=== PATIENT | female | born 1945 | race Caucasian/White ===

== ENCOUNTER 2017-03-13 08:55 | Outpatient (CLI) | payer MEDICARE, OTHER ==
--- NOTE | 2017-03-15 13:15 | DEXA Report ---
DEXA SCAN: 03/13/2017 CLINICAL INDICATION: Postmenopausal screening. TECHNIQUE: Dual energy x-ray absorptiometry (DXA) was performed on a Mark43 system. Regions measured are the AP spine, femoral neck, and, if needed, forearm. COMPARISON: None. In accordance with the International Society for Clinical Densitometry (ISCD) guidelines, data from previous exams may be reanalyzed using current recommendations and techniques. This is done to allow a more accurate basis for comparison with the current study. FINDINGS The data for the lumbar spine is as follows: REGION BMD (g/cm/cm) T-SCORE Z-SCORE L1 1.105 -0.2 1.2 L2 1.081 -1.0 0.4 L3 1.308 0.9 2.3 L4 1.372 1.4 2.9 TOTAL 1.230 0.4 1.8 NOTE: All evaluable vertebrae are used for classification. The data for the hip is as follows: REGION BMD (g/cm/cm) T-SCORE Z-SCORE Neck 1.032 0.0 1.6 TOTAL 1.102 0.7 2.1 NOTE: The femoral neck or total proximal femur, whichever is lowest, is used for classification. IMPRESSION WHO CLASSIFICATION BASED ON THE INTERNATIONAL REFERENCE STANDARD IS NORMAL. FRACTURE RISK IS NOT INCREASED. RECOMMENDATION: Patients with diagnosis of osteoporosis or osteopenia should have regular bone mineral density assessment. For those eligible for Medicare, routine testing is allowed once every 2 years. Testing frequency can be increased for patients who have rapidly progressing disease or for those who are receiving medical therapy to restore bone mass. COMMENT: World Health Organization (WHO) definitions for osteoporosis and osteopenia: NORMAL BMD: T-score at 1.0 or higher, fracture risk is low. OSTEOPENIA BMD: T-score between 1.0 and -2.5, fracture risk is increased. OSTEOPOROSIS BMD: T-score at 2.5 or lower, fracture risk high. National Osteoporosis Foundation recommends: 1. Obtain adequate dietary calcium (at least 1200 mg per day) and vitamin D (400 -800 international units per day). 2. Participate, as appropriate, in regular weightbearing and muscle- strengthening exercise. 3. Avoid tobacco use and reduce alcohol and caffeine intake. 4. For more detailed information see the website at www.NOF.org. TD: 03/13/2017 10:20 [facility]
== END 2017-03-13 08:56 | disposition home or self-care (01) ==
LOC: DI 08:55
PROVIDERS: ATTEND Physician Assistant
DX: Z13.820 Encounter for screening for osteoporosis (principal); N95.8 Other specified menopausal and perimenopausal disorders
CPT/HCPCS: 77080

== ENCOUNTER 2020-10-31 08:00 | Outpatient (CLI) | payer MEDICARE, OTHER | END 2020-10-31 23:59 | disposition home or self-care (01) | LOC: LAB.N 08:00 | PROVIDERS: ATTEND Physician Assistant Medical | DX: R05 Cough (principal); Z20.822 Contact with and (suspected) exposure to COVID-19 ==

== ENCOUNTER 2022-06-26 15:00 | Outpatient (CLI) | payer MEDICARE, OTHER | END 2022-06-26 15:15 | disposition home or self-care (01) | LOC: LAB.N 15:00 | PROVIDERS: ATTEND Registered Nurse | DX: R30.0 Dysuria (principal) | CPT/HCPCS: 87086; 87181 ==

== ENCOUNTER 2022-08-15 09:45 | Outpatient (CLI) | payer MEDICARE, OTHER ==
--- NOTE | 2022-08-15 17:24 | XRAY Report ---
PROCEDURE: Chest 2 View X-Ray INDICATIONS: PRODUCTIVE COUGH TECHNIQUE: 2 views of the chest were acquired. COMPARISON: None. FINDINGS: Surgical changes and devices: None. Lungs and pleura: No pleural effusions or pneumothorax. Mild diffuse interstitial prominence. No foc al consolidation. Mediastinum: Mediastinal contours appear normal. Heart size is normal. Bones and chest wall: No suspicious bony lesions. Overlying soft tissues appear unremarkable. IMPRESSION: 1. No acute cardiopulmonary process. 2. Mild diffuse interstitial prominence. Reviewed by: Ella Lobato MD on 08/15/2022 5:22 PM PDT Approved by: Ella Lobato MD on 08/15/2022 5:22 PM PDT Station ID: [id number]
== END 2022-08-15 10:00 | disposition home or self-care (01) ==
LOC: DI.N 09:45
PROVIDERS: ATTEND Registered Nurse
DX: R05.9 Cough, unspecified (principal)

== ENCOUNTER 2022-08-30 08:00 | Outpatient (CLI) | payer MEDICARE, OTHER | END 2022-08-30 23:59 | disposition home or self-care (01) | LOC: LAB.N 08:00 | PROVIDERS: ATTEND Nurse Practitioner | DX: R05.8 Other specified cough (principal); Z20.822 Contact with and (suspected) exposure to COVID-19 ==

== ENCOUNTER 2022-10-31 10:03 | Outpatient (CLI) | payer MEDICARE, OTHER ==
--- NOTE | 2022-10-31 13:52 | XRAY Report ---
PROCEDURE: Chest 2 View X-Ray INDICATIONS: PNA TECHNIQUE: 2 views of the chest were acquired. COMPARISON: None. FINDINGS: Surgical changes and devices: None. Lungs and pleura: No pleural effusions or pneumothorax. Lungs are clear. Mediastinum: Mediastinal contours appear normal. Heart size is normal. Bones and chest wall: No suspicious bony lesions. Overlying soft tissues appear unremarkable. IMPRESSION: No acute cardiopulmonary process. Reviewed by: Jaya Solo on 10/31/2022 1:51 PM PDT Approved by: Jaya Solo on 10/31/2022 1:51 PM PDT Station ID: [id number]
== END 2022-10-31 10:04 | disposition home or self-care (01) ==
LOC: DI 10:03
PROVIDERS: ATTEND Internal Medicine
DX: Z09 Encounter for follow-up examination after completed treatment for conditions other than malignant neoplasm (principal); Z87.01 Personal history of pneumonia (recurrent)

== ENCOUNTER 2023-07-05 17:06 | Emergency (ER) | payer MEDICARE, OTHER ==
[2023-07-05 17:42] VITALS: O2SAT 99
--- NOTE | 2023-07-05 17:56 | ED Physician Documentation ---
History of Present Illness - Stated complaint Stated Complaint: R LEG PX - Chief complaint Chief Complaint: Trauma Ext - History obtained from History obtained from: Patient - History of Present Illness Pain level max: 2 Pain level now: 2 - Additonal information Additional information: Patient is a 78-year-old female who states that she has a history of a DVT in the right leg after hip surgery 3 years ago. She states she started having pain and swelling behind the right knee a few weeks ago. Saw her doctor yesterday and has an ultrasound ordered but became more concerned today so came in to the emergency department for an ultrasound. No chest pain. No shortness of breath. No palpitations. Not on blood thinners. Nothing makes it better or worse. Review of Systems Constitutional: denies: Fever, Chills Cardiac: denies: Chest pain / pressure, Palpitations Respiratory: denies: Dyspnea, Cough GI: denies: Nausea, Vomiting, Diarrhea PD PAST MEDICAL HISTORY - Past Medical History Past Medical History: Yes Cardiovascular: High cholesterol, Deep vein thrombosis GI: Other Psych: Depression Other Past Medical History: melba's, "overactive bladder" - Past Surgical History Past Surgical History: Yes Ortho: Hip replacement - Present Medications Home Medications: Ambulatory Orders Medication Instructions Recorded Confirmed Atorvastatin [Lipitor] 40 mg 07/05/23 Levothyroxine [Synthroid] 125 mcg 07/05/23 Sertraline HCl [Zoloft] 20 mg PO 07/05/23 Tolterodine Tartrate [Detrol] 2 mg 07/05/23 - Allergies Allergies/Adverse Reactions: Allergies Allergy/AdvReac Type Severity Reaction Status Date / Time No Known Drug Allergies Allergy Verified 07/05/23 17:52 - Social History Does the pt smoke?: No Smoking Status: Never smoker Does the pt drink ETOH?: No ETOH Use: Wine Does the pt have substance abuse?: No PD ED PE NORMAL - Vitals Vital signs reviewed: Yes - General General: Alert and oriented X 3, No acute distress - HEENT HEENT: PERRL, Moist mucous membranes - Neck Neck: Supple, no meningeal sign - Cardiac Cardiac: RRR, Strong equal pulses - Respiratory Respiratory: No respiratory distress, Clear bilaterally - Derm Derm: Warm and dry - Extremities Extremities: Other (R knee - mild TTP and swelling posterior R knee. no redness. No palpable cord.) - Neuro Neuro: Alert and oriented X 3 - Psych Psych: Normal mood, Normal affect Results - Vitals Vitals: Vital Signs - 24 hr 07/05/23 07/05/23 17:24 19:16 Temperature 35.9 C L Heart Rate 87 86 Respiratory 18 16 Rate Blood Pressure 150/84 H 189/68 H O2 Saturation 99 99 Oxygen O2 Source Room air - Rads (name of study) Duplex ultrasound right lower extremity Relevant Findings:: Final report received, See rad report PD Medical Decision Making - ED course Complexity details: reviewed results, re-evaluated patient, considered differential, d/w patient ED course: No evidence of DVT on ultrasound. Does have a Last's cyst. She will follow-up with her doctor for further care of this. No emergency medical condition at this time. Patient counseled regarding signs and symptoms for which I believe and urgent re-evaluation would be necessary. Patient with good understanding of and agreement to plan and is comfortable going home at this time This document was made in part using voice recognition software. While efforts are made to proofread this document, sound alike and grammatical errors may occur. Departure - Departure Disposition: 01 Home, Self Care Clinical Impression: Bakers cyst Qualifiers: Laterality: right Qualified Code(s): M71.21 - Synovial cyst of popliteal space [Last], right knee Condition: Good Instructions: ED Cyst Last Follow-Up: Alber Garcia MD [Primary Care Provider] - Comments: Your ultrasound today shows a Last's cyst. There is no evidence of DVT. Please follow-up with your doctor as needed for further care. Return if you worsen. Forms: PCP List Discharge Date/Time: 07/05/23 19:15
[2023-07-05 19:21] VITALS: BP 189/68
--- NOTE | 2023-07-05 19:31 | Ultrasound Report ---
PROCEDURE: Duplex Ext Veins Right INDICATIONS: RLE pain, swelling TECHNIQUE: Real-time imaging, as well as color and pulse Doppler interrogation, were performed of the lower extr emity deep veins from the inguinal ligament to the popliteal fossa. Attempted visualization of the ca lf veins was performed. COMPARISON: None. FINDINGS: The deep veins are normally compressible, and free of intraluminal thrombus. Color and pu lse Doppler demonstrate normal phasic intraluminal flow. There is normal augmentation response to di stal compression maneuver. Right Last's cyst measuring 5.3 x 4.1 x 1.7 cm at the site of pain. IMPRESSION: No right lower extremity DVT. Right Last's cyst measuring 5.3 cm. Reviewed by: Hosea Coulter MD on 07/05/2023 7:30 PM PDT Approved by: Hosea Coulter MD on 07/05/2023 7:30 PM PDT Station ID: [id number]
== END 2023-07-05 19:15 | disposition home or self-care (01) ==
LOC: ED 17:06
DX: M71.21 Synovial cyst of popliteal space [Baker], right knee (principal); E78.00 Pure hypercholesterolemia, unspecified; E06.3 Autoimmune thyroiditis; Z86.718 Personal history of other venous thrombosis and embolism; Z96.641 Presence of right artificial hip joint; Z79.899 Other long term (current) drug therapy
CPT/HCPCS: 99283; 99284